=== PATIENT | male | born 1940 | race Caucasian/White ===

== ENCOUNTER 2021-03-04 09:54 | Outpatient (RCR) | payer MEDICARE | END 2021-03-12 | LOC: OT 09:54 | PROVIDERS: ATTEND Plastic Surgery | DX: M19.042 Primary osteoarthritis, left hand (principal); M19.041 Primary osteoarthritis, right hand | CPT/HCPCS: L3913 ×2 ==

== ENCOUNTER 2021-03-25 15:21 | Outpatient (RCR) | payer MEDICARE | END 2021-04-12 | LOC: OT 15:21 | PROVIDERS: ATTEND Plastic Surgery | DX: M19.042 Primary osteoarthritis, left hand (principal); M19.041 Primary osteoarthritis, right hand ==